=== PATIENT | male | born 1955 | race American Indian/Alaskan Native ===

== ENCOUNTER 2018-06-03 20:50 | Emergency (ER) | payer BC, OTHER ==
[2018-06-03 20:50] VITALS: BMI 22.1
[2018-06-03 20:56] VITALS: TEMP 98.1
--- NOTE | 2018-06-03 21:21 | ED PDOC ---
Arrival/HPI <Jose Luis Hernández - Last Filed: 06/03/18 22:01> - General Historian: Patient <Joan Masterson - Last Filed: 06/03/18 22:24> - General Chief Complaint: Back Pain Time Seen by Provider: 06/03/18 20:57 - History of Present Illness Narrative History of Present Illness (Text): 06/03/18 21:18 62-year-old male presents today with left lower back pain radiating into the left side of the buttocks and left leg. Patient denies numbness weakness or tingling in the extremity. Patient states symptoms started about 6 days ago when he was working out in the house. Patient states he was doing pushups and then started to do dips in the house. Patient states on the seventh DIP he felt an ache in the lower back and stopped. Patient states since then he was seen at [facility] and was given prescriptions for medications that he didn't fill. Patient states he does not like to take medications by mouth he would prefer natural approach to his pain control. Patient states that the Lidoderm patch that he was going to get was not up improved by his insurance and he would have to pay [id number]. Patient states he has been trying BenGay and icy hot and home remedies without improvement of his back pain. Patient denies abdominal pain. Denies nausea or vomiting. Denies chest pain or shortness of breath. Patient denies dizziness or weakness. Patient denies bladder or bowel incontinence. Patient states symptoms are a worsened with sitting for long periods of time. Patient states his back pain improves with standing. Patient states he feels a lot of stiffness in the low back and states he feels pain that shoots into the left leg. pt states he has hx of chronic back pain and has been going to physical therapy for the past 2 months. pt states he just had xrays of the back which showed arthritis. (Joan Masterson) Past Medical History - Provider Review Nursing Documentation Reviewed: Yes - Travel History Have you recently traveled outside [place] w/in the past 3 mons?: No - Cardiac Hx Cardiac Disorders: No - Pulmonary Hx Respiratory Disorders: No - Neurological Hx Neurological Disorder: No - HEENT Hx HEENT Disorder: No - Renal Hx Renal Disorder: No - Endocrine/Metabolic Hx Endocrine Disorders: No - Hematological/Oncological Hx Blood Disorders: No - Integumentary Hx Dermatological Disorder: No - Musculoskeletal/Rheumatological Hx Musculoskeletal Disorders: Yes Hx Back Pain: Yes - Gastrointestinal Hx Gastrointestinal Disorders: No - Genitourinary/Gynecological Hx Genitourinary Disorders: No - Psychiatric Hx Psychophysiologic Disorder: No Hx Substance Use: No - Anesthesia Hx Anesthesia: No <Joan Masterson - Last Filed: 06/03/18 22:24> Family/Social History - Physician Review Nursing Documentation Reviewed: Yes Family/Social History: Unknown Family HX Smoking Status: Former Smoker Hx Alcohol Use: No Hx Substance Use: No <Joan Masterson - Last Filed: 06/03/18 22:24> Allergies/Home Meds <Jose Luis Hernández - Last Filed: 06/03/18 22:01> <Joan Masterson - Last Filed: 06/03/18 22:24> Allergies/Adverse Reactions: Allergies No Known Allergies Allergy (Verified 06/03/18 20:52) Review of Systems - Review of Systems Constitutional: absent: Fatigue, Fevers Respiratory: absent: SOB, Cough Cardiovascular: absent: Chest Pain, Palpitations Gastrointestinal: absent: Abdominal Pain, Constipation, Diarrhea, Nausea, Vomiting Genitourinary Male: Other (no bladder or bowel incontinence). absent: Dysuria, Frequency, Hematuria, Urinary Output Changes Musculoskeletal: Arthralgias, Back Pain. absent: Neck Pain Skin: absent: Rash, Pruritis Neurological: absent: Headache, Dizziness Psychiatric: absent: Anxiety, Depression <Joan Masterson - Last Filed: 06/03/18 22:24> Physical Exam Vital Signs Reviewed: Yes Temperature: Afebrile Blood Pressure: Normal Pulse: Regular Respiratory Rate: Normal Appearance: Positive for: Well-Appearing, Non-Toxic, Comfortable Pain Distress: None Mental Status: Positive for: Alert and Oriented X 3 - Systems Exam Head: Present: Atraumatic Mouth: Present: Moist Mucous Membranes Neck: Present: Normal Range of Motion Respiratory/Chest: Present: Clear to Auscultation, Good Air Exchange. No: Respiratory Distress, Accessory Muscle Use Cardiovascular: Present: Regular Rate and Rhythm, Normal S1, S2. No: Murmurs Abdomen: No: Tenderness, Distention, Peritoneal Signs, Rebound, Guarding Back: Present: Normal Inspection, Paraspinal Tenderness (+ left sided paraspinal tenderness, + ttp left buttock over sciatic foramen; ), Pain with Leg Raise. No: Midline Tenderness Upper Extremity: Present: Normal ROM Lower Extremity: Present: Normal ROM Neurological: Present: GCS=15, Speech Normal, Motor Func Grossly Intact, Normal Sensory Function, Gait Normal Skin: Present: Warm, Dry, Normal Color. No: Rashes Psychiatric: Present: Alert, Oriented x 3 <Joan Masterson - Last Filed: 06/03/18 22:24> Vital Signs Temp Pulse Resp BP Pulse Ox 06/03/18 20:53 98.1 F 58 L 16 145/89 95 Medical Decision Making <Jose Luis Hernández - Last Filed: 06/03/18 22:01> Reassessment Condition: Re-examined, Improved <Joan Masterson - Last Filed: 06/03/18 22:24> ED Course and Treatment: 06/03/18 21:23 Patient nontoxic well-appearing in no distress with stable vital signs. toradol IM Patient reassessment: Feeling better much better with medications ambulating with a steady gait. Muscle strength 5 out of 5 bilaterally. I advised to followup with the orthopedist/back specialist within the next 2 days. Return if symptoms worsen persist or new symptoms develop. pt states he has physical therapy session scheduled for tuesday. pt states he has been going for the past 2 months for his back pain. pt was advised that he must f/u with back specialist and may need MRI of back for further evaluation. Patient verbalizes understanding of discharge instructions and need for immediate followup. all aspects of this case were discussed the attending of record. Impression: Back pain Motrin every 6 hours as needed for pain Flexeril one tablet every 8 hours as needed for muscle spasms: May cause drowsiness Followup with the orthopedist/back specialist within the next 2 days Followup with primary care physician within the next 2 days Return if symptoms worsen persist or if new symptoms develop (Joan Masterson) - Medication Orders Current Medication Orders: Discontinued Medications Ketorolac Tromethamine (Toradol) 60 mg IM STAT STA Stop: 06/03/18 21:15 Last Admin: 06/03/18 21:20 Dose: 60 mg MAR Pain Assessment Document 06/03/18 21:20 CNR (Rec: 06/03/18 21:21 CNR [id number]) Pain Reassessment Is this a pain reassessment? No IM Administration Charges Document 06/03/18 21:20 CNR (Rec: 06/03/18 21:21 CNR [id number]) Injection Site MAR Injection Site Left Gluteus Mega Charges for Administration # of IM Administrations 1 - PA / [employer] / Resident Statement / has reviewed & agrees with the documentation as recorded. / has examined the patient and agrees with the treatment plan. <Jose Luis Hernández - Last Filed: 06/03/18 22:01> Disposition/Present on Arrival <Jose Luis Hernández - Last Filed: 06/03/18 22:01> - Present on Arrival Any Indicators Present on Arrival: No History of DVT/PE: No History of Uncontrolled Diabetes: No Urinary Catheter: No History of Decub. Ulcer: No History Surgical Site Infection Following: None - Disposition Have Diagnosis and Disposition been Completed?: Yes Disposition Time: 22:15 Patient Plan: Discharge <Joan Masterson - Last Filed: 06/03/18 22:24> - Disposition Diagnosis: Back pain Disposition: HOME/ ROUTINE Patient Problems: Current Active Problems Problem Status Onset Back pain Acute Condition: GOOD Discharge Instructions (ExitCare): Low Back Pain (DC) Additional Instructions: Motrin every 6 hours as needed for pain Flexeril one tablet every 8 hours as needed for muscle spasms: May cause drowsiness Followup with the orthopedist/back specialist within the next 2 days Followup with primary care physician within the next 2 days Return if symptoms worsen persist or if new symptoms develop Prescriptions: Cyclobenzaprine [Cyclobenzaprine HCl] 10 mg PO Q8 #10 tab Ibuprofen [Motrin] 600 mg PO Q6H PRN #20 tab PRN Reason: pain/fever reduction Referrals: PCP,NO [Primary Care Provider] - Follow up with primary Baltazar Curtis MD [Staff Provider] - Follow up with primary Sparkle Moura MD [Medical Doctor] - Follow up with primary [facility] [employer] [facility] [Outside] - Follow up with primary Forms: [employer] ([place]), WORK NOTE
[2018-06-03 22:29] VITALS: BP 116/72; PULSE 60; RESP 18; O2SAT 100
== END 2018-06-03 22:28 | disposition home or self-care (01) ==
LOC: ED 20:50
DX: M54.5 Low back pain (principal); Z87.891 Personal history of nicotine dependence
CPT/HCPCS: 96372; 99282; J1885